=== PATIENT | male | born 1985 | race Caucasian/White ===

== ENCOUNTER 2024-03-08 17:37 | Emergency (ER) | payer MEDICARE, SELFPAY ==
[2024-03-08 17:43] VITALS: BP 160/99; PULSE 100; TEMP 36.7; O2SAT 93; BMI 29.8
--- NOTE | 2024-03-08 18:02 | US_ITS ---
The [place] [id number] Patient Name: CANDI GAO MRN: [id number] date: 1985 Sex: M Assigned Patient Location: ER Current Patient Location: ER Accession/Order Number: [id number] Exam Date: 03/08/2024 18:37 Report Date: 03/08/2024 20:23 At the request of: JANE BARBER Procedure: US right upper quadrant EXAM: US right upper quadrant HISTORY: GALLBLADDER COMPARISON: None. TECHNIQUE: Ultrasound of the right upper quadrant abdomen. FINDINGS: Liver: Diffuse increased echogenicity compared to the right kidney. No focal lesions are identified. Portal vein is patent and demonstrates appropriate direction of flow. Gallbladder: No cholelithiasis or pericholecystic fluid. Gallbladder wall is upper limits of normal in thickness. Common bile duct: Normal in diameter, measuring 0.51cm. Right kidney: Normal in size and echogenicity measuring 10.3 cm. No hydronephrosis or renal calculus. Miscellaneous:Sonographic Cristobal's sign is absent US/US right upper quadrant IMPRESSION: No convincing evidence of acute cholecystitis. Hepatic steatosis. Electronically authenticated by: KIRSTEN ESPARZA Date: 03/08/2024 20:23
--- NOTE | 2024-03-08 18:05 | XR_ITS ---
The [address] [address] Patient Name: CANDI GAO MRN: [id number] date: 1985 Sex: M Assigned Patient Location: ER Current Patient Location: ED.MAIN Accession/Order Number: [id number] Exam Date: 03/08/2024 18:24 Report Date: 03/08/2024 20:13 At the request of: JANE BARBER Procedure: XR acute abdomen series EXAM: XR acute abdomen series , 03/08/2024 HISTORY: ruq pain COMPARISON: None. TECHNIQUE: X-rays of the abdomen and chest, acute abdominal series and supine and upright position. FINDINGS: There is moderate stool throughout the colon. No dilated bowel loops or air-fluid levels are seen. No evidence of free air under the diaphragm. Low lung volumes. Bilateral basal atelectasis. No hilar or mediastinal enlargement. No acute osseous findings. XR/XR acute abdomen series IMPRESSION: No evidence of bowel obstruction or perforation. Low lung volumes and bilateral basal atelectasis. Electronically authenticated by: ADAMS GARDINER Date: 03/08/2024 20:13
--- NOTE | 2024-03-08 18:06 | ED_ITS ---
HPI HPI - General Adult General Chief complaint: Abdominal Pain Stated complaint: abd pain Time Seen by Provider: 03/08/24 17:38 Source: patient Mode of arrival: walk-in Limitations: no limitations History of Present Illness HPI narrative: Patient is a 38-year-old male who is presenting to the ER with chief complaint of right upper quadrant pain, midepigastric pain that has been ongoing since around 10 AM when he woke up this morning. Patient lives at home with his mother. Patient does not work. Patient has mental health history. Patient is compliant with his medications. Patient still has a gallbladder and appendix. He has never had a kidney stone before. Patient has no chest pain or shortness of breath. No nausea or vomiting, patient has just been having intermittent rig ht upper quadrant pain but the pain is stayed consistent, the severity has been waxing and waning. Patient has no history of heartburn or acid reflux. Patient has no bowel or bladder changes. Patient initially told me he was not constipated. Then patient told me did not have a bowel movement today, yesterday, or possibly the day before. Patient normally goes once a day. Patient does not recall being constipated last 3 to 5 days or having difficulty with stools he says not having any bowel movement and all for the last 2 or 3 days. Mother is at bedside. No rash. No heavy lifting twisting or turning. No history of acid reflux, heartburn, or gallbladder difficulty. All systems are negative except as noted/marked. All systems reviewed and otherwise negative. Nurses note and vital signs reviewed and patient is not hypoxic. General: The patient appears mild to moderate distress secondary to pain, holding his right upper quadrant. Patient is resting uncomfortably on cart. Patient is not toxic, lethargic, or listless Skin: Warm, dry, no pallor noted. There is no rash noted. No petechiae, purpura. Head: Normocephalic, atraumatic Eye: Normal conjunctiva, no drainage, EOMI. PERRL Ears, Nose, Mouth, and Throat: oral mucosa is moist. Nares patent. Mouth without vesicles. Cardiovascular: Regular Rate and Rhythm, no murmur, gallop, rub Respiratory: Patient is in no distress, no accessory muscle use, lungs are clear to auscultation, no wheezing, rales or rhonchi Back: non-tender, no CVA tenderness bilaterally to percussion. No CT LS midline pain GI: When I lay patient flat, patient has more persistent and severe right upper quadrant and midepigastric tenderness to palpation. Patient starts increasing respiratory rate, and moaning slightly secondary to pain. Patient has no peritoneal signs, patient does have moderate to severe midepigastric and right upper quadrant tenderness to palpation, no flank pain bilateral, otherwise no other tenderness to palpation, no masses appreciated. No rebound, guarding, or rigidity noted. No distention. Patient has no right lower quadrant or left lower quadrant tenderness palpation, no suprapubic tenderness to palpation. Musculoskeletal: Patient has full range of motion of all of the extremities, no motor, sensory, or focal neurological deficits Neurological: A&O x4, normal speech Psychiatric: Cooperative Related Data Home Medications ?Medication ?Instructions ?Recorded ?Confirmed cariprazine 1.5 mg capsule 1.5 mg PO Q24H 03/08/24 03/08/24 (Vraylar) cholecalciferol (vitamin D3) 125 5,000 unit PO DAILY 03/08/24 03/08/24 mcg (5,000 unit) capsule fluoxetine 20 mg capsule 20 mg PO DAILY 03/08/24 03/08/24 levothyroxine 25 mcg tablet 25 mcg PO DAILY 03/08/24 03/08/24 olanzapine 20 mg tablet 20 mg PO DAILY 03/08/24 03/08/24 rosuvastatin 20 mg tablet 20 mg PO DAILY 03/08/24 03/08/24 Allergies Allergy/AdvReac Type Severity Reaction Status Date / Time No Known Drug Allergies Allergy Verified 03/08/24 17:46 Opioid HPI Opioid Management Most Recent Opioid Data: Last Pain Scale 10 03/08/24 18:14 03/08/24 Last MAR Pain Assessment 03/08/24 18:14 PFSH PFSH Social History Little interest or pleasure in doing things: not at all Feeling down, depressed, or hopeless: not at all Exam Constitutional Vital Signs, click to edit/add: Last Vital Signs Temp 98.0 F 03/08/24 17:43 Pulse 100 H 03/08/24 17:43 Resp 18 03/08/24 17:43 BP 160/99 H 03/08/24 17:43 Pulse Ox 93 L 03/08/24 17:43 O2 Del Method Room Air 03/08/24 17:43 Course Vital Signs Vital signs: Vital Signs Temperature 98.0 F 03/08/24 17:43 Pulse Rate 100 H 03/08/24 17:43 Respiratory Rate 18 03/08/24 17:43 Blood Pressure 160/99 H 03/08/24 17:43 Pulse Oximetry 93 L 03/08/24 17:43 Oxygen Delivery Method Room Air 03/08/24 17:43 Temperature 98.0 F 03/08/24 17:43 Pulse Rate 100 H 03/08/24 17:43 Respiratory Rate 18 03/08/24 17:43 Blood Pressure 160/99 H 03/08/24 17:43 Pulse Oximetry 93 L 03/08/24 17:43 Oxygen Delivery Method Room Air 03/08/24 17:43 Medical Decision Making MDM Narrative Medical decision making narrative: Patient was given a dose of morphine, Toradol, and Zofran. Patient has not had any nausea. Patient was given medication to get tolerated ultrasound and x-ray. Patient has never had a gallbladder evaluation before. Patient has lab work done as well. 0 patient will be transition to Dr. Fam for evaluation of the final results of the ultrasound of gallbladder and final disposition. Patient's lab work and abdominal series x-ray show feces filled colon, no obstruction, no air-fluid levels, no acute abnormalities on abdominal series. No pneumothorax, chest x-ray shows no acute abnormality, no acute cardiopulmonary disease. Lactic acid 3.1. White blood cells of 13. Will wait for patient's gallbladder ultrasound to see if it shows anything acute, CT of the abdomen pelvis may be added. Lab Data Lab results reviewed: Yes I reviewed the patient's lab results Labs: Lab Results 03/08/24 Range/Units 17:50 WBC 13.4 H (4.0-11.0) 10^3/uL RBC 4.69 L (4.70-6.10) 10^6/uL Hgb 14.0 (14.0-18.0) g/dL Hct 42.0 (42.0-54.0) % MCV 89.6 (80.0-94.0) fL MCH 29.9 (25.9-34.0) pg MCHC 33.3 (29.9-35.2) g/dL RDW 12.3 (11.0-15.0) % Plt Count 215 (150-450) 10^3/uL MPV 10.5 (9.5-13.5) fL Neut % (Auto) 65.7 (43.0-75.0) % Lymph % (Auto) 23.6 (20.5-60.0) % Fergus % (Auto) 9.1 (1.7-12.0) % Eos % (Auto) 1.0 (0.9-7.0) % Baso % (Auto) 0.4 (0.2-2.0) % Neut # (Auto) 8.8 H (1.4-6.5) 10^3/uL Lymph # (Auto) 3.2 (1.2-3.8) 10^3/uL Fergus # (Auto) 1.2 H (0.3-0.8) 10^3/uL Eos # (Auto) 0.1 (0.0-0.7) 10^3/uL Baso # (Auto) 0.1 (0.0-0.1) 10^3/uL Abs Immat Gran (auto) 0.03 (0.00-0.03) 10^3/uL Imm/Tot Granulo (auto) 0.2 (0.0-0.5) % Sodium 138 (136-145) mmol/L Potassium 3.9 (3.5-5.1) mmol/L Chloride 100 (98-107) mmol/L Carbon Dioxide 23.2 (21.0-32.0) mmol/L Anion Gap 18.7 BUN 5.0 L (7.0-18.0) mg/dL Creatinine 1.20 (0.70-1.30) mg/dL Est GFR ( Amer) >60 (>=60 mL/min/1.73m^2) Est GFR (Non-Af Amer) >60 (>=60 mL/min/1.73m^2) BUN/Creatinine Ratio 4.2 Glucose 108 H (74-106) mg/dL Lactate 3.1 H* (0.4-2.0) mmol/L Calcium 9.3 (8.5-10.1) mg/dL Total Bilirubin 0.4 (0.2-1.0) mg/dL AST 20 (15-37) U/L ALT 37 (16-63) U/L Alkaline Phosphatase 92 (46-116) U/L Troponin I High Sens <4.0 L (4.0-76.1) pg/mL Total Protein 8.3 H (6.4-8.2) g/dL Albumin 3.8 (3.4-5.0) g/dL Globulin 4.5 g/dL Albumin/Globulin Ratio 0.8 Lipase 27.0 (16.0-77.0) U/L Discharge Plan Discharge Patient Disposition: Still a Patient
[2024-03-08] MEDS: MORPHINE SULFATE 2 MG/ML SYRINGE 4 MG IV (18:14)
[2024-03-08] MEDS: KETOROLAC TROMETHAMINE 30 MG/ML VIAL 15 MG IVP (18:14)
[2024-03-08] MEDS: ONDANSETRON PF 4 MG/2 ML VIAL IV (18:14)
[2024-03-08 18:19] LABS: Basophils Absolute Auto 0.1 10^3/uL (0.0-0.1); Basophils Percent Auto 0.4 % (0.2-2.0); Eosinophils Absolute Auto 0.1 10^3/uL (0.0-0.7); Immature Granulocytes Abs Auto 0.03 10^3/uL (0.00-0.03); Immature Granulocytes Pct Auto 0.2 % (0.0-0.5); Lymphocytes Absolute Auto 3.2 10^3/uL (1.2-3.8); Lymphocytes Percent Auto 23.6 % (20.5-60.0); Mean Corpuscular HGB Conc 33.3 g/dL (29.9-35.2); Mean Corpuscular Hemoglobin 29.9 pg (25.9-34.0); Mean Corpuscular Volume 89.6 fL (80.0-94.0); Mean Platelet Volume 10.5 fL (9.5-13.5); Monocytes Absolute Auto 1.2 10^3/uL (0.3-0.8); Monocytes Percent Auto 9.1 % (1.7-12.0); Neutrophils Absolute Auto 8.8 10^3/uL (1.4-6.5); Neutrophils Percent Auto 65.7 % (43.0-75.0); Platelet Count 215 10^3/uL (150-450); Red Blood Count 4.69 10^6/uL (4.70-6.10); Red Cell Distribution Width 12.3 % (11.0-15.0); White Blood Count 13.4 10^3/uL (4.0-11.0)
[2024-03-08 18:34] LABS: Alanine Aminotransferase 37 U/L (16-63); Albumin Globulin Ratio 0.8; Albumin Level 3.8 g/dL (3.4-5.0); Alkaline Phosphatase 92 U/L (46-116); Anion Gap 18.7; Aspartate Amino Transferase 20 U/L (15-37); BUN Creatinine Ratio 4.2; Bilirubin Total 0.4 mg/dL (0.2-1.0); Calcium 9.3 mg/dL (8.5-10.1); Carbon Dioxide 23.2 mmol/L (21.0-32.0); Chloride 100 mmol/L (98-107); Estimated GFR (African America >60 (>=60 mL/min/1.73m^2); Estimated GFR (Non-African Ame >60 (>=60 mL/min/1.73m^2); Globulin 4.5 g/dL; Glucose 108 mg/dL (74-106); Potassium 3.9 mmol/L (3.5-5.1); Sodium 138 mmol/L (136-145); Total Protein 8.3 g/dL (6.4-8.2); Troponin I High Sensitivity <4.0 pg/mL (4.0-76.1)
[2024-03-08 18:49] LABS: Lactate/Lactic Acid 3.1 mmol/L (0.4-2.0)
[2024-03-08] MEDS: DICYCLOMINE HCL 20 MG/2 ML VIAL IM (19:05)
--- NOTE | 2024-03-08 20:47 | CT_ITS ---
[address] [address] Patient Name: CANDI GAO MRN: [id number] date: 1985 Sex: M Assigned Patient Location: ER Current Patient Location: .MAIN Accession/Order Number: [id number] Exam Date: 03/08/2024 21:08 Report Date: 03/08/2024 22:21 At the request of: DAISY PUENTES Procedure: CT abdomen pelvis w con CT ABDOMEN AND PELVIS WITH CONTRAST: INDICATION: RUQ pain. COMPARISON: Right upper quadrant ultrasound performed the same day.. TECHNIQUE:Multiple thin section transaxial slices were acquired through the abdomen and pelvis with intravenous contrast. Coronal and sagittal reconstructed images were reviewed. Oral contrastWas not administered. FINDINGS: LOWER CHEST: There is a small right pleural effusion. Bibasilar airspace opacities are also present which could represent developing infection. LIVER: The liver is unremarkable. GALLBLADDER AND BILIARY SYSTEM: No obvious ductal dilation. No calcified stones. SPLEEN: The spleen is unremarkable. PANCREAS: The pancreas is unremarkable. ADRENAL GLANDS: The adrenal glands are unremarkable. KIDNEYS AND URETERS: There is no hydronephrosis of the kidneys.No obstructing urologic calcifications are present. VASCULATURE: Vascularity is unremarkable. PERITONEUM/RETROPERITONEUM: Peritoneum/retroperitoneum is unremarkable. LYMPH NODES: No suspicious lymphadenopathy. GASTROINTESTINAL TRACT: The bowel is normal in caliber.No acute inflammatory changes are present in the bowel.The appendix is visualized and is not inflamed. BLADDER: The urinary bladder is unremarkable. REPRODUCTIVE SYSTEM: Reproductive system is unremarkable. BODY WALL: There is a tiny fat-containing umbilical hernia. BONES: Osseous structures are unremarkable. CT/CT abdomen pelvis w con IMPRESSION: 1. Small right pleural effusion and bibasilar airspace disease. Imaging findings in the lung bases may be secondary to pneumonia in the proper clinical setting. 2. No definitive acute inflammatory process or obstructive uropathy in the abdomen or pelvis. Electronically authenticated by: NUVIA MINAYA Date: 03/08/2024 22:21
--- NOTE | 2024-03-08 21:51 | PC.NURSE ---
Awaiting CT and Lactic acid results--pt updated.
[2024-03-08 21:56] LABS: Lactate/Lactic Acid 1.2 mmol/L (0.4-2.0)
--- NOTE | 2024-03-08 22:09 | PC.NURSE ---
Update to pt. Continue to await CT results.
[2024-03-08 22:10] VITALS: BP 140/85; PULSE 80; TEMP 36.4; O2SAT 98
[2024-03-08] MEDS: AZITHROMYCIN 250 MG TABLET 500 MG PO (22:50)
[2024-03-08] MEDS: CEFUROXIME AXETIL 250 MG TABLET 500 MG PO (22:51)
== END 2024-03-08 23:03 | disposition home or self-care (01) ==
PROVIDERS: Emergency Provider Emergency Medicine
DX: J18.9 Pneumonia, unspecified organism (principal); J90 Pleural effusion, not elsewhere classified; R10.11 Right upper quadrant pain
CPT/HCPCS: 36415; 74022; 74177; 76705; 80053; 83605; 83690; 84484; 85025; 96372; 96374; 96375; 99285; J0500; J1885; J2270; J2405; Q9967

== ENCOUNTER 2024-11-18 12:48 | Emergency (ER) | payer MEDICARE, MEDICAID, SELFPAY ==
[2024-11-18 12:51] VITALS: BP 143/89; PULSE 95; TEMP 37; O2SAT 99; BMI 27.9
--- OUTSIDE RECORDS SUMMARY | 2024-11-18 12:59 | XMS_ITS | Encounter Summary ---
Author Organization [place] Address [facility] [id number] [address] [place] [address] Care Team Providers Care Dry Lumber Grader Name Role Phone Unavailable Primary Care Provider Unavailabl e Encounter Details Date Type Department Care Team (Late st Contact Info) Description 01/30/2022 Orders Only [facility] [address] [place] [address] [address] Holly Tom, ADVERTISING SPECIALIST-TOOL GRINDER OPERATOR SURFACE [address] LEFT PM 10/11/24 [place] [phone] Vitamin D deficiency (Primary Dx) Social History Tobacco Use Types Packs/Day Years Used Date Smoking Tobacco: Every Day Cigarettes 1 20 Smokeless Tobacco: Current Snuff Alcohol Use Standard Drinks/Week Comments Never 0 (1 standard drink = 0.6 oz pur e alcohol) PHQ-2 Answer Date Recorded Total Score 1 11/15/2021 Childcare Answer Date Recorded Childcare Unknown 09/23/2018 Employment Answer Date Recorded Employment Unknown 09/23/2018 Sex and Gender Information Value Date Recorded Sex Assigned at Not on file Legal Sex Male 11:43 AM EDT Gender Identity Not on file Sexual Orientation Not on file documented as of this encounter Plan of Treatment Upcoming Encounters Date Type Department Care Team (Late st Contact Info) Description 11/22/2024 1:45 PM EDT Office Visit [facility] [address] [place] [address] Ezio Harrell, DO [address] [place] [address] documented as of this encounter Visit Diagnoses Diagnosis Vitamin D deficiency- Primary documented in this encounter Additional Health Concerns Assessment Noted Time PHQ-9 Depression Total Score: 1 11/16/19 10:24 AM EDT A Body Mass Index follow-up plan has been documented for the patient 11/21/2021 7:39 PM EDT documented as of this encounter
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
--- OUTSIDE RECORDS SUMMARY | 2024-11-18 12:59 | XMS_ITS | Encounter Summary ---
Author Organization [employer] Address [facility] [id number] [address] [place] [address] Care Team Providers Care Table Inspector Name Role Phone Unavailable Primary Care Provider Unavailabl e Reason for Visit * Reason Comments Med Refill Encounter Details Date Type Department Care Team (Late st Contact Info) Description 02/12/2022 Refill [facility] [address] [place] [place] [address] [place] [phone] Holly Tom, CLEANING MATRON-SUPERVISOR PROPERTIES [address] [facility] PM 10/11/24 [place] [phone] Major depressive disorder, remission status unspecified, unspecified whether recurrent Social History Tobacco Use Types Packs/Day Years [...] on file Sexual Orientation Not on file COVID-19 Exposure Response Date Recorded In the last month, have you been in contact with someone who was confirmed or suspected to have Coronavirus / COVID-19? No / Unsure 02/13/2022 1:51 PM EDT documented as of this encounter Plan of Treatment Upcoming Encounters Date Type Department Care Team (Late st Contact Info) Description 11/22/2024 1:45 PM EDT Office Visit [facility] [address] [place] [address] Ezio Harrell, DO [address], [place] [place] [address] documented as of this encounter Visit Diagnoses Diagnosis Major depressive disorder, remission status unspecified, unspecified whether recurrent documented in this encounter Additional Health Concerns Assessment Noted Time PHQ-9 Depression Total Score: 1 11/16/19 22 10:24 AM EDT A Body Mass Index follow-up plan has been documented for the patient 11/21/2021 7:39 PM EDT documented as of this encounter
--- OUTSIDE RECORDS SUMMARY | 2024-11-18 12:59 | XMS_ITS | Encounter Summary ---
Author Organization [employer] tem Address [facility] [id number] [address] [place] [address] Care Team Providers Care Envelope Patternmaker Name Role Phone Unavailable Primary Care Provider Unavailabl e Encounter Details Date Type Department Care Team (Late Contact Info) Description 01/28/2022 Orders Only [facility] [address] [place] [address] [place] [phone] Mary Manley CMA Blood tests for routine general physical examination; Vitamin D deficiency Social History Tobacco Use Types Packs/Day Years [...] Encounters Date Type Department Care Team (Late Contact Info) Description 11/22/2024 1:45 PM EDT Office Visit [facility] Medicine [address] [place] [address] Ezio Harrell DO [address], [facility] [place] [address] documented as of this encounter Procedures Procedure Name Priority Date/Time Associated Diagnosis Comments CBC WITH AUTO DIFFERENTIAL Routine 01/25/2022 Blood tests for routine general physical examination VITAMIN D 25 HYDROXY Routine 01/25/2022 Vitamin D deficiency T3, FREE Routine 01/25/2022 Blood tests for routine general physical examination TSH Routine 01/25/2022 Blood tests for routine general physical examination T4, FREE Routine 01/25/2022 Blood tests for routine general physical examination HEMOGLOBIN A1C Routine 01/25/2022 Blood tests for routine general physical examination LIPID PROFILE Routine 01/25/2022 Blood tests for routine general physical examination COMPREHENSIVE METABOLIC PANEL Routine 01/25/2022 Blood tests for routine general physical examination documented in this encounter Results * (ABNORMAL) CBC auto differential (01/25/2022) External Wbc Count 7.2 4 - 11 MANUALLY TRANSCRIBED RESULTS External Rbc Count 4.69(A) 4.70 - 10.10 MANUALLY TRANSCRIBED RESULTS External Hemoglobin 14.3 14 - 18 MANUALLY TRANSCRIBED RESULTS External Hematocrit Hct 42.7 42 - 54 MANUALLY TRANSCRIBED RESULTS External Mcv 91 80 - 94 MANUALL Y TRANSCRIBED RESULTS External MCH 30.5 25.9 - 35.2 MANUALLY TRANSCRIBED RESULTS External Mchc 33.5 29.9 - 35.2 MANUALLY TRANSCRIBED RESULTS External Rdw 13.2 11 - 15 MANUALL Y TRANSCRIBED RESULTS External Platelet Count 158 150 - 450 MANUALLY TRANSCRIBED RESULTS External Mpv 9.4(A) 9.5 - 13.5 MANUALLY TRANSCRIBED RESULTS External Seg Neutrophil 42.2(A) 43 - 75 MANUALLY TRANSCRIBED RESULTS External Lymphocyte, Atypical 44.4 20.5 - 60 MANUALLY TRANSCRIBED RESULTS External Absolute Lymphocyte 3.2 1.2 - 3.8 MANUALLY TRANSCRIBED RESULTS External Monocytes 8.5 1.7 - 12 MANUALLY TRANSCRIBED RESULTS External % Basophils 0.8 0.2 - 2 MANUALLY TRANSCRIBED RESULTS External Absolute Neutrophils 3.0 1.4 - 6.5 MANUALLY TRANSCRIBED RESULTS External Absolute Lymphocyte 3.2 1.2 - 3.8 MANUALLY TRANSCRIBED RESULTS External Absolute Monocytes 0.6 0.3 - 0.8 MANUALLY TRANSCRIBED RESULTS External Absolute Basophil 0.1 0.0 - 0.1 MANUALLY TRANSCRIBED RESULTS 01/25/2022 Holly [facility] Final Result Performing Organization Address [facility] de Phone Number MANUALLY TRANSCRIBED RESULTS * Hemoglobin A1c (01/25/2022) Pathologist [facility] External Hemoglobin A1C 5.5 % MANUALLY TRANSCRIBED RESULTS 01/25/2022 Holly Moura Tom [facility] LAB BLOOD ORDERABLES Final Result Performing Organization Address [facility] de Phone Number MANUALLY TRANSCRIBED RESULTS * (ABNORMAL) Vitamin D 25 hydroxy (01/25/2022) Pathologist [facility] External Vitamin D 25-Hydroxy 5(A) 30 - 100 MANUALLY TRANSCRIBED RESULTS 01/25/2022 Holly Moura Tom [facility] LAB BLOOD ORDERABLES Final Result Performing Organization Address [facility] de Phone Number MANUALLY TRANSCRIBED RESULTS * (ABNORMAL) TSH (01/25/2022) Pathologist [facility] External Tsh 6.935(A) 0.358 - 3.740 MANUALLY TRANSCRIBED RESULTS 01/25/2022 Holly J Tom [facility] LAB BLOOD ORDERABLES Final Result Performing Organization Address [facility] de Phone Number MANUALLY TRANSCRIBED RESULTS * (ABNORMAL) Lipid profile (01/25/2022) External Cholesterol 256(A) 3.4 - 5.0 MANUALLY TRANSCRIBED RESULTS External Cholesterol:Hdl 8.1 4.4 - 11 MANUALLY TRANSCRIBED RESULTS External Hdl Cholesterol 42 40 - 60 MANUALLY TRANSCRIBED RESULTS External Ldl (Calc) 181(A) 100 - 129 MANUALLY TRANSCRIBED RESULTS External Triglycerides 163(A) 0 - 100 MANUALLY TRANSCRIBED RESULTS External Very Low Lipoprotein 32.6 MANUALLY TRANSCRIBED RESULTS 01/25/2022 Holly Zeny Negro [facility] LAB BLOOD ORDERABLES Final Result Performing Organization Address [facility] de Phone Number MANUALLY TRANSCRIBED RESULTS * Comprehensive metabolic panel (01/25/2022) External Albumin 3.7 3.4 - 5.0 [facility] External Alt Sgpt 35 15 - 37 [facility] External Anion Gap 1.1 [facility] External Ast 16 15 - 37 [facility] External Blood Urea Nitrogen Bun 11 7 - 18 [facility] External Calcium Ca 8.8 8.5 - 10.1 [facility] External Chloride 104 98 - 107 [facility] External Co2 / Carbon Dioxide 28.1 21 - 32 [facility] External Creatinine 1.17 0.7 - 1.30 [facility] External Gfr Amer >60 >60 [facility] External Gfr Non Amer >60 >60 [facility] External Alkaline Phosphatase 71 46 - 116 [facility] External Glucose Fasting Or Random (Fbs) 92 74 - 106 [facility] External Potassium K 4.1 3.5 - 5.1 [facility] External Sodium Na 141 136 - 145 [facility] Total Bilirubin 0.3 0.2 - 1.0 [facility] External Total Protein 7.2 6.4 - 8.2 [facility] 01/25/2022 Hollyludy Tom [facility] LAB BLOOD ORDERABLES Final Result Performing Organization Address [facility] de Phone Number [facility] * (ABNORMAL) T3, free (01/25/2022) External T3 Free 4.17(A) 2.18 - 3.95 MANUALLY TRANSCRIBED RESULTS 01/25/2022 Hollyludy Tom [facility] LAB BLOOD ORDERABLES Final Result MANUALLY TRANSCRIBED RESULTS * T4, free (01/25/2022) External T4 Free 1.05 0.76 - 1.46 MANUALLY TRANSCRIBED RESULTS 01/25/2022 us Holly Tom APRN-EDGER TAILER LAB BLOOD ORDERABLES Final Result MANUALLY TRANSCRIBED RESULTS documented in this encounter Visit Diagnoses Diagnosis Blood tests for routine general physical examination Laboratory examination ordered as part of a routine general medical examination Vitamin D deficiency documented in this encounter Additional Health Concerns Assessment Noted Time PHQ-9 Depression Total Score: 1 11/16/19 22 10:24 AM EDT A Body Mass Index follow-up plan has been documented for the patient 11/21/2021 7:39 PM EDT documented as of this encounter
--- OUTSIDE RECORDS SUMMARY | 2024-11-18 12:59 | XMS_ITS | Encounter Summary ---
Author Organization [employer] tem Address [facility] [place]-[id number] [address] [place] [address] Care Team Providers Care Electric Deicer Inspector Name Role Phone Unavailable Primary Care Provider Unavailabl e Encounter Details Date Type Department Care Team (Late st Contact Info) Description 01/29/2022 Orders Only [facility] [address] [place] [place] [address] Holly Tom, ACCELERATOR SYSTEMS DIRECTOR-HOSTESS [address] LEFT PM 10/11/24 [place] [phone] Social History Tobacco Use Types Packs/Day Years [...] - Family Medicine [address] [place] [address] Ezio Harrell DO [address], [place] [address] documented as of this encounter Visit Diagnoses Not on filedocumented in this encounter Additional Health Concerns Assessment Noted Time PHQ-9 Depression Total Score: 1 11/16/19 10:24 AM EDT A Body Mass Index follow-up plan has been documented for the patient 11/21/2021 7:39 PM EDT documented as of this encounter
--- OUTSIDE RECORDS SUMMARY | 2024-11-18 12:59 | XMS_ITS | Patient Health Record ---
Author Organization [facility] [place] Address [address] [place] [address] Care Team Providers Care Wood Caulker Name Role Phone Holly Tom Primary Care Provider Unavaila ble Allergies Allergen (clinical drug ingredient) Drug/Non Drug Allergy documented on EMR Reaction Allergy Type Onset Date Status minocycline Minocycline hives Drug Allergy Act brigid Reason For Referral No Information Medications Medication SIG (Take, Route, Frequency, Duration) Notes Start Date End Date Status Rosuvastatin Calcium 20 MG 1 tablet Oral ly Once a day Active Vitamin D Active FLUoxetine HCl 20 MG 1 capsule Orally On ce a day Active OLANZapine 20 MG 1 tablet on the tong ue and allow to dissolve Orally Once a day Active Social History Tobacco Use: Social History Observation Description Date Details (start date - stop date) Former Smoker NA - 05/15/2022 Tobacco Use/Smoking Question Answer Notes Patient is a former smoker When did you stop smoking? 05/15/2022 Plan Of Treatment No Information Insurance Providers Payer Name Payer Address Payer Phone Subscriber Number Group Number Insured Name Patient Relationship to Insured Coverage Start Date Coverage End Date [place] [address] [place] [address] [id number] Jamel Siegel Self - patient is the insured [address] [facility] [place] [id number] Jamel Siegel Self - patient is the insured 8 Medical (General) History Medical History History ICD Code thyroid issues Surgical History Surgery Date(Month/Year) repair of neck wound Hospitalization History Reason Date(Month/Year) mental status per pt hx form
--- OUTSIDE RECORDS SUMMARY | 2024-11-18 12:59 | XMS_ITS | Encounter Summary ---
Author Organization [employer] tem Address [id number] [address] [place] [address] Care Team Providers Care Clinical Appeals Rn Name Role Phone Unavailable Primary Care Provider Unavailabl e Encounter Details Date Type Department Care Team (Late Contact Info) Description 09/25/2022 Orders Only [facility] Medicine [address] [place] [address] Kayli Arora CMA Otomycosis Social History Tobacco Use Types Packs/Day Years Used Date Smoking Tobacco: Former Cigarettes 1 20 Smokeless Tobacco: Former Snuff Alcohol Use Standard Drinks/Week Comments Never 0 (1 standard drink = 0.6 oz pur e alcohol) PHQ-2 Answer Date Recorded Total Score 0 07/17/2022 Childcare Answer Date Recorded Childcare Unknown 09/23/2018 [...] Description 11/22/2024 1:45 PM EDT [facility] [address] [place] [address] Ezio Harrell, [address], [facility] [address] documented as of this encounter Procedures Procedure Name Priority Date/Time Associated Diagnosis Comments AMB REFERRAL TO PODIATRY Routine 09/25/2022 10:31 AM EDT Otomycosis documented in this encounter Results * Ambulatory referral to Podiatry (09/25/2022 10:31 AM EDT) us Holly Tom APRN-[facility]ONG [facility]OOKER OUTPATIENT REFERRAL ORDERABLES Final Result MANUALLY TRANSCRIBED RESULTS documented in this encounter Visit Diagnoses Diagnosis Otomycosis Other specified dermatomycoses documented in this encounter Additional Health Concerns Assessment Noted Time PHQ-9 Depression Total Score: 0 07/18/19 10:30 AM EDT A Body Mass Index follow-up plan has been documented for the patient 07/17/2022 7:31 PM EDT documented as of this encounter
--- OUTSIDE RECORDS SUMMARY | 2024-11-18 12:59 | XMS_ITS | Encounter Summary ---
Author Organization [employer] tem Address [facility] [place]-[id number] [address] [place] [address] Care Team Providers Care Labor And Employment Paralegal Name Role Phone Unavailable Primary Care Provider Unavailabl e Reason for Visit * Reason Comments Med Refill Encounter Details Date Type Department Care Team (Late st Contact Info) Description 12/03/2021 Refill [facility] [address] [place] [place] [phone] Holly Tom, PEDIATRIC DENTAL HYGIENIST-AUTOMATIC NAILING MACHINE OPERATOR [address] PM 10/11/24 [place] [phone] Major depressive disorder, remission status unspecified, unspecified [...] have Coronavirus / COVID-19? No / Unsure 11/15/2021 10:19 AM EDT documented as of this encounter Miscellaneous Notes * Telephone Encounter - Yohana Ervin MA - 12/03/2021 9:42 AM EDT Await jamie return to fill, since not filled in 45 days documented in this encounter Plan of Treatment Upcoming Encounters Date Type Department Care Team (Late st Contact Info) Description 11/22/2024 1:45 PM EDT Office Visit [facility] [address] [place] [address] Ezio Harrell DO [address], [place] [address] documented as of this encounter Visit Diagnoses [...]
--- OUTSIDE RECORDS SUMMARY | 2024-11-18 13:00 | XMS_ITS | Encounter Summary ---
Author Organization [employer] tem Address [facility] [place]-[id number] [address] [place] [address] Care Team Providers Care Screen Printing Equipment Setter Name Role Phone Unavailable Primary Care Provider Unavailabl e Encounter Details Date Type Department Care Team (Late st Contact Info) Description 04/12/2024 Telephone [facility] - Family Medicine [address] [place] [address] Brenda De La Torre CMA Social History Tobacco Use Types Packs/Day Years Used Date Smoking Tobacco: Former Cigarettes 1 20 Smokeless Tobacco: Former Snuff Alcohol Use Standard Drinks/Week Comments Never 0 (1 standard drink = 0.6 oz pur e alcohol) PHQ-2 Answer Date Recorded Total Score 0 04/08/2024 Childcare Answer Date Recorded Childcare Unknown 09/23/2018 Employment Answer Date Recorded Employment Unknown 09/23/2018 Hunger Screening Answer Date Recorded Within the past 12 months we worried whether our food would run out before we got money to buy more. Never True 04/08/2024 Within the past 12 months th e food we bought just didn't last and we didn't have money to get more. Never True 04/08/2024 Sex and Gender Information Value Date Recorded Sex Assigned at Not on file Legal Sex Male 11:43 AM EDT Gender Identity Not on file Sexual Orientation Not on file documented as of this encounter Miscellaneous Notes * Telephone Encounter - Brenda De La Torre CMA - 04/12/2024 9:27 AM EST ----- Message from ADRIAN Larson sent at 04/12/2024 9:06 AM EST ----- Reviewed. Overall labs are good. Thyroid and vitamin D lab is in good ranges. Cholesterol panel is excellent. Mild elevation of A1c, 5.8%. Recommend diet lower in carbohydrates and sugars. * Telephone Encounter - Brenda De La Torre CMA - 04/12/2024 9:27 AM EST Called pts mom back read note she stated she understood documented in this encounter Plan of Treatment Upcoming Encounters Date Type Department Care Team (Late st Contact Info) Description 11/22/2024 1:45 PM EDT Office Visit [facility] Family Medicine [address] [place] [address] Ezio Harrell, DO [address], [facility] [place] [address] documented as of this encounter Visit Diagnoses Not on filedocumented in this encounter Additional Health Concerns Assessment Noted Time PHQ-9 Depression Total Score: 0 04/08/20 24 3:56 PM EST A Body Mass Index follow-up plan has been documented for the patient 04/08/2024 5:00 PM EST documented as of this encounter
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
--- NOTE | 2024-11-18 13:06 | PC.NURSE ---
right hand with slight swelling. no bruising or redness observed.
--- NOTE | 2024-11-18 13:11 | XR_ITS ---
The [address] [address] Patient Name: CANDI GAO MRN: [id number] date: 1985 Sex: M Assigned Patient Location: ER Current Patient Location: ER Accession/Order Number: [id number] Exam Date: 11/18/2024 13:54 Report Date: 11/18/2024 13:54 At the request of: ANDER HILLS Procedure: XR hand RT min 3V RIGHT HAND - 3 views REASON FOR EXAM: Injury to right hand 3 views no now with pain. COMPARISON: None FINDINGS: Boxer's fracture fifth metacarpal. No additional fractures are seen. Joint spaces appear maintained. Soft tissue swelling. XR/XR hand RT min 3V IMPRESSION: SOFT TISSUE SWELLING WITH BOXER'S FRACTURE FIFTH METACARPAL. Impression dictated by: David Arreola Jr., D.O. 11/18/2024 1:54 PM Dictation Location: [facility] Electronically authenticated by: [id number] Y Date: 11/18/2024 13:54
--- NOTE | 2024-11-18 13:15 | ED_ITS ---
HPI HPI - General Adult General Chief complaint: Psychiatric Symptoms Stated complaint: ALTERED MENTAL STATUS Time Seen by Provider: 11/18/24 12:54 Source: patient and family Mode of arrival: walk-in Limitations: no limitations History of Present Illness HPI narrative: Patient Elisabeth with history of behavioral health problems he has had a 3-week history of hallucinations hearing voices. Patient punched a wall with his right hand 3 weeks ago he was noncompliant medications. His family at bedside states been taking his medication as directed patient agrees he is taking his medications as directed. He denies any intent to harm self or anyone else denies suicidal ideation. Patient has right hand pain he denies fever, chills, nausea, vomiting, cough, congestion, abdominal pain, nausea, vomiting. Denies any recreational substances. Current severity nothing improves his symptoms nothing worsens his symptoms Onset (ago): week(s) (Greater than 3 weeks) Related Data Home Medications ?Medication ?Instructions ?Recorded ?Confirmed cariprazine 1.5 mg capsule 1.5 mg PO Q24H 03/08/2411/05 (Vraylar) cholecalciferol (vitamin D3) 125 5,000 unit PO DAILY 1 05/08/23 11/18/24 mcg (5,000 unit) capsule Held on 11/18/24. Instructions: trouble getting fluoxetine 20 mg capsule 20 mg PO DAILY 03/08/2411/05 levothyroxine 25 mcg tablet 25 mcg PO DAILY 03/08/24 0 11/18/24 olanzapine 20 mg tablet 20 mg PO QPM 03/08/24 rosuvastatin 20 mg tablet 20 mg PO DAILY 03/08/2411/05 Allergies Allergy/AdvReac Type Severity Reaction Status Date / Time minocycline Allergy Severe Hives Verified 11/18/24 13:00 Opioid HPI Opioid Management Most Recent Opioid Data: Last Pain Scale 10 03/08/24, 18:14 Ur Phencyclidine Scrn, (NEGATIVE) Negative Today, 13:20 Review of Systems ROS Status of ROS 10 or more systems reviewed and unremark able except as noted in history and below Constitutional Denies: fever or chills Ears, nose, mouth, and throat Denies: neck pain or change in hearing Cardiovascular Denies: chest pain or shortness of breath with exertion Respiratory Denies: shortness of breath or cough Gastrointestinal Denies: abdominal pain, nausea or vomiting Musculoskeletal Denies: back pain or neck pain Integumentary/Breast Reports: rash Neurological Denies: headache Psychiatric Reports: auditory hallucinations; Denies: suicidal ideation PFSH PFSH Social History Little interest or pleasure in doing things: not at all Feeling down, depressed, or hopeless: not at all Exam Constitutional Vital Signs, click to edit/add: Last Vital Signs Temp 98.6 F 11/18/24 12:51 Pulse 95 H 11/18/24 12:51 Resp 16 11/18/24 12:51 BP 131/84 11/18/24 16:13 Pulse Ox 99 11/18/24 12:51 O2 Del Method Room Air 11/18/24 12:51 Documenting provider has reviewed patient's vital signs: yes Common normals: no apparent distress General appearance: cooperative, comfortable and well kempt Orientation/consciousness: Yes awake HENMT Common normals: normocephalic; head/scalp not atraumatic Head and scalp: normal to inspection (SAng. crusted lesion 3 mm posterior left pinna/old appearing bruise on scal) and abrasion; no hematoma, no laceration and no raccoon eyes Eye Common normals: PERRL and EOMs intact bilaterally Neck & C-Spine Common normals: full ROM and supple General: normal visual inspection Chest Common normals: inspection of chest normal and palpation of chest normal Respiratory Common normals: normal respiratory effort, no use of accessory muscles and clear to auscultation bilaterally Effort & inspection: able to speak in complete sentences Cardio Common normals: regular rate, regular rhythm, S1 normal heart sound and S2 normal heart sound Common normals: no CVA tenderness Back & Pelvis Common normals: no CVA tenderness, no thoracic nor lumbar tenderness and thoraco-lumbar ROM normal Extremity Common normals: normal to inspection and full ROM Neuro Common normals: moves all extremities, no focal motor deficits and gait normal Psych Common normals: cooperative; negative for affect normal (Flat affect) Course Consultations Consultation #1: Patient's x-ray patient has right fifth met fracture. Patient regarding reduction worsening symptoms pain. Benefits better position stability decreased and deformity. And splinting patient agreeable. Reduced with gentle traction ulnar gutter splint. Time: 14:30 Consultation #2: On reexam patient retains sensation, range of motion distally cap refill less than 2 seconds all digits right hand. Reviewed x-ray alignment improved. Discussed with patient. Time: 15:00 Vital Signs Vital signs: Vital Signs Temperature 98.6 F 11/18/24 12:51 Pulse Rate 95 H 11/18/24 12:51 Respiratory Rate 16 11/18/24 12:51 Blood Pressure 143/89 H 11/18/24 12:51 Pulse Oximetry 99 11/18/24 12:51 Oxygen Delivery Method Room Air 11/18/24 12:51 Temperature 98.6 F 11/18/24 12:51 Pulse Rate 95 H 11/18/24 12:51 Respiratory Rate 16 11/18/24 12:51 Blood Pressure 131/84 11/18/24 16:13 Pulse Oximetry 99 11/18/24 12:51 Oxygen Delivery Method Room Air 11/18/24 12:51 Medical Decision Making MDM Narrative Medical decision making narrative: Will add basic labs including CBC CMP salicylate acetaminophen TSH EtOH drug screen urinalysis right hand x-ray for possible injury. Exam patient has nontender old appearing yellowish bruise on top of his head with small abrasion which appears more recent. Has no drainable fluid collection right posterior pinna negative tenderness negative step deformity scalp denies any epistaxis, loss of consciousness, drainage from ears. For behavioral health evaluation. Time 1500 hrs. Differential Diagnosis Differential Diagnosis: Hand fracture, depression, hallucinations. Lab Data Labs: Lab Results 11/18/24 11/18/24 Range/Units 13:20 13:52 WBC 8.5 (4.0-11.0) 10^3/uL RBC 4.95 (4.70-6.10) 10^6/uL Hgb 14.8 (14.0-18.0) g/dL Hct 42.6 (42.0-54.0) % MCV 86.1 (80.0-94.0) fL MCH 29.9 (25.9-34.0) pg MCHC 34.7 (29.9-35.2) g/dL RDW 12.6 (11.0-15.0) % Plt Count 153 (150-450) 10^3/uL MPV 10.6 (9.5-13.5) fL Neut % (Auto) 72.9 (43.0-75.0) % Lymph % (Auto) 19.2 L (20.5-60.0) % [place] % (Auto) 6.6 (1.7-12.0) % Eos % (Auto) 0.6 L (0.9-7.0) % Baso % (Auto) 0.5 (0.2-2.0) % Neut # (Auto) 6.2 (1.4-6.5) 10^3/uL Lymph # (Auto) 1.6 (1.2-3.8) 10^3/uL [place] # (Auto) 0.6 (0.3-0.8) 10^3/uL Eos # (Auto) 0.1 (0.0-0.7) 10^3/uL Baso # (Auto) 0.0 (0.0-0.1) 10^3/uL Abs Immat Gran (auto) 0.02 (0.00-0.03) 10^3/uL Imm/Tot Granulo (auto) 0.2 (0.0-0.5) % Sodium 142 (136-145) mmol/L Potassium 3.5 (3.5-5.1) mmol/L Chloride 105 (98-107) mmol/L Carbon Dioxide 29.5 (21.0-32.0) mmol/L Anion Gap 11.0 BUN 13.0 (7.0-18.0) mg/dL Creatinine 1.15 (0.70-1.30) mg/dL Est GFR ( Amer) >60 (>=60 mL/min/1.73m^2) Est GFR (Non-Af Amer) >60 (>=60 mL/min/1.73m^2) BUN/Creatinine Ratio 11.3 Glucose 123 H (74-106) mg/dL Calcium 9.4 (8.5-10.1) mg/dL Total Bilirubin 0.3 (0.2-1.0) mg/dL AST 17 (15-37) U/L ALT 49 (16-63) U/L Alkaline Phosphatase 98 (46-116) U/L Total Protein 8.1 (6.4-8.2) g/dL Albumin 4.2 (3.4-5.0) g/dL Globulin 3.9 g/dL Albumin/Globulin Ratio 1.1 TSH 0.453 (0.358-3.740) uIU/mL Urine Color Yellow (YELLOW) Urine Clarity Clear (CLEAR) Urine pH 6.0 (5.0-9.0) Ur Specific [place] 1.025 (1.005-1.025) Urine Protein Negative (NEG/TRACE) mg/dL Urine Glucose (UA) Negative (NEGATIVE) mg/dL Urine Ketones >=80 A (NEGATIVE) mg/dL Urine Occult Blood Negative (NEGATIVE) Urine Nitrite Negative (NEGATIVE) Urine Bilirubin Small A (NEGATIVE) Urine Urobilinogen 1.0 (0.2-1.0) EU/dL Ur Leukocyte Esterase Negative (NEGATIVE) Salicylates <2.8 (<=19.9) mg/dL Urine Opiates Screen Negative (NEGATIVE) Ur Buprenorphine Scrn Negative (NEGATIVE) Ur Oxycodone Screen Negative (NEGATIVE) Urine Methadone Screen Negative (NEGATIVE) Acetaminophen <2.0 L (10.0-30.0) ug/mL Ur Barbiturates Screen Negative (NEGATIVE) U Tricyclic Antidepress Negative (NEGATIVE) Ur Phencyclidine Scrn Negative (NEGATIVE) Ur Amphetamines Screen Negative (NEGATIVE) U Methamphetamines Scrn Negative (NEGATIVE) U Benzodiazepines Scrn Negative (NEGATIVE) Urine Cocaine Screen Negative (NEGATIVE) U Cannabinoids Screen Positive A (NEGATIVE) Ethanol Quant <3 mg/dL ECG Data Attestation: I personally reviewed and interpreted this ECG as follows: Prior ECG tracings: not available for review Interpretation: [id number], my interpretation sinus rhythm, rate 92 bpm UT interval 116 ms QRS 100 ms QTc [address] segment elevation. Discharge Plan Discharge Chief Complaint: Psychiatric Symptoms Clinical Impression: Boxer's fracture, Psychosis Patient Disposition: [facility] Time of Disposition Decision: 17:06 Discharge Location: [facility] Discharge location: Follow up with Orthopedics/ Dr [phone] Condition: Good Mode of Transportation: EMS
--- NOTE | 2024-11-18 13:25 | ECG_ITS ---
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 Measurements Intervals [place] Rate: 92 P: 30 WY: 116 QRS: 78 QRSD: 100 T: -30 QT: 328 QTc: 378 Interpretive Statements 1100 Sinus rhythm 2210 Short WY interval 4068 Nonspecific [place] abnormality 9150 abnormal ECG No previous ECG available for comparison Electronically Signed On 11-20-2024 7:31:57 EDT by KATIE DOLAN M.D.
--- NOTE | 2024-11-18 13:30 | PC.NURSE ---
urine and EKG completed at this time. pt is very flat affect but cooperative. mom states he's stopped taking his medications for an unknown amount of time. does not have a therapist or counselor.
[2024-11-18 14:07] LABS: Hematocrit 42.6 % (42.0-54.0); Hemoglobin 14.8 g/dL (14.0-18.0); Immature Granulocytes Abs Auto 0.02 10^3/uL (0.00-0.03); Immature Granulocytes Pct Auto 0.2 % (0.0-0.5); Lymphocytes Absolute Auto 1.6 10^3/uL (1.2-3.8); Mean Corpuscular HGB Conc 34.7 g/dL (29.9-35.2); Mean Corpuscular Hemoglobin 29.9 pg (25.9-34.0); Mean Corpuscular Volume 86.1 fL (80.0-94.0); Platelet Count 153 10^3/uL (150-450); Red Blood Count 4.95 10^6/uL (4.70-6.10); White Blood Count 8.5 10^3/uL (4.0-11.0)
--- NOTE | 2024-11-18 14:16 | PC.NURSE ---
splint in place to right hand by PA at bedside
[2024-11-18 14:21] LABS: Glucose Urine UA NEGATIVE (NEGATIVE)
--- NOTE | 2024-11-18 14:22 | XR_ITS ---
The [address] [address] Patient Name: CANDI GAO MRN: [id number] date: 1985 Sex: M Assigned Patient Location: ER Current Patient Location: ER Accession/Order Number: [id number] Exam Date: 11/18/2024 15:00 Report Date: 11/18/2024 15:01 At the request of: ANDER HILLS Procedure: XR hand RT 2V RIGHT HAND - 2 views REASON FOR EXAM: Postreduction imaging COMPARISON: Prereduction imaging performed earlier today FINDINGS: Splint material is now in place. There is improved anatomic alignment of the patient's boxer's fracture compared to the prior study. XR/XR hand RT 2V IMPRESSION: IMPROVED ANATOMIC ALIGNMENT OF THE PATIENT'S BOXERS FRACTURE. Impression dictated by: David Arreola Jr., D.O. 11/18/2024 3:01 PM Dictation Location: [place] [address] Electronically authenticated by: [id number] Y Date: 11/18/2024 15:01
[2024-11-18 14:26] LABS: Salicylate <2.8 mg/dL (<=19.9)
[2024-11-18 14:31] LABS: Alanine Aminotransferase 49 U/L (16-63); Albumin Globulin Ratio 1.1; Albumin Level 4.2 g/dL (3.4-5.0); Alkaline Phosphatase 98 U/L (46-116); Anion Gap 11.0; Aspartate Amino Transferase 17 U/L (15-37); Blood Urea Nitrogen 13.0 mg/dL (7.0-18.0); Calcium 9.4 mg/dL (8.5-10.1); Carbon Dioxide 29.5 mmol/L (21.0-32.0); Chloride 105 mmol/L (98-107); Estimated GFR (African America >60 (>=60 mL/min/1.73m^2); Estimated GFR (Non-African Ame >60 (>=60 mL/min/1.73m^2); Globulin 3.9 g/dL; Glucose 123 mg/dL (74-106); Potassium 3.5 mmol/L (3.5-5.1); Sodium 142 mmol/L (136-145); Total Protein 8.1 g/dL (6.4-8.2)
[2024-11-18 14:32] LABS: Acetaminophen <2.0 ug/mL (10.0-30.0)
[2024-11-18 14:34] LABS: Cannabinoid Screen Urine POSITIVE (NEGATIVE); Methamphetamines Screen Urine NEGATIVE (NEGATIVE); Tricyclic Antidepressant Urine NEGATIVE (NEGATIVE)
[2024-11-18 14:35] LABS: Thyroid Stimulating Hormone 0.453 uIU/mL (0.358-3.740)
[2024-11-18 14:41] VITALS: BP 133/82
--- NOTE | 2024-11-18 15:42 | PC.NURSE ---
1530 - pt speaking with [facility] on video chat on phone.
--- NOTE | 2024-11-18 16:01 | PC.NURSE ---
offered food or drink - pt denies wanting any at this time. resting comfortably watching TV.
[2024-11-18 16:13] VITALS: BP 131/84
--- NOTE | 2024-11-18 18:10 | PC.NURSE ---
pt's belongings left in ER, pt's mom will come pick them up.
== END 2024-11-18 18:00 | disposition short-term general hospital (02) ==
PROVIDERS: Physician Assistant; Emergency Provider Emergency Medicine; PCP Nurse Practitioner
DX: S62.396A Other fracture of fifth metacarpal bone, right hand, initial encounter for closed fracture (principal); F29 Unspecified psychosis not due to a substance or known physiological condition; R41.82 Altered mental status, unspecified; M79.641 Pain in right hand; W22.09XA Striking against other stationary object, initial encounter
CPT/HCPCS: 36415; 73120; 73130; 80053; 80179; 80307; 80320; 80329; 81003; 84443; 85025; 93005; 99285